=== PATIENT | male | born 1950 | race Caucasian/White ===

== ENCOUNTER → 2016-05-29 | Outpatient (CLI) | payer MEDICARE ==
[~2016-05-29] VITALS: Ht 170.2 cm; Wt 82.1 kg
[~2016-05-29] MED LIST: AMLO5TAB2 PO; ASPI81TA85 PO; AZEL0.055; AZEL0.1S3; FLUT1SPR2; FLUTISP; LIDOCAINE 2% INJ 100 MG/5 ML SDV (FOR ANES.) As Ordered ONE; MONT10TA2 PO; NS 1,000 ML IV SCH; PREV30CA11 PO; PROP60TA14 PO; PROPOFOL 200 MG/20 ML VIAL As Ordered ONE
--- NOTE | 2016-05-29 10:15 | ROOR ---
Patient Name: Kenney Robles Procedure Date: 05/29/2016 9:53 AM Date of : 1950 Age: 65 Room: [facility] Gender: Male Note Status: Finalized Procedure: Colonoscopy to Cecum Indications: High risk colon cancer surveillance: Personal history of colonic polyps, Last colonoscopy: 2007, Incidental - Heme positive stool Providers: Justus Nelson MD Referring MD: Helen Jain NP Requesting Provider: Medicines: Monitored Anesthesia Care Complications: No immediate complications. Procedure: Pre-Anesthesia Assessment: - The heart rate, respiratory rate, oxygen saturations, blood pressure, adequacy of pulmonary ventilation, and response to care were monitored throughout the procedure. The Colonoscope was introduced through the anus and advanced to the cecum, identified by appendiceal orifice and ileocecal valve. The colonoscopy was performed without difficulty. The patient tolerated the procedure well. The quality of the bowel preparation was excellent. Findings: The perianal and digital rectal examinations were normal. No other significant abnormalities were identified in a careful examination of the remainder of the colon. The exam was otherwise without abnormality. Impression: - The examination was otherwise normal. - No specimens collected. - The exam was otherwise normal to the cecum. Recommendation: - Patient has a contact number available for emergencies. The signs and symptoms of potential delayed complications were discussed with the patient. Return to normal activities tomorrow. Written discharge instructions were provided to the patient. - High fiber diet. - Discharge patient to home. - Continue present medications. - Repeat colonoscopy in 5 years for surveillance. - Return to referring physician. - The findings and recommendations were discussed with the patient's family. Justus Nelson MD Justus Nelson MD 05/29/2016 10:15:06 AM This report has been signed electronically. Number of Addenda: 0 Note Initiated On: 05/29/2016 9:53 AM Estimated Blood Loss: Estimated blood loss: none.
[2016-05-29 10:30] VITALS: BP 133/95
== END | disposition home or self-care (01) ==
LOC: M OPP 08:27
PROVIDERS: ATTEND Internal Medicine Gastroenterology
DX: Z12.11 Encounter for screening for malignant neoplasm of colon (principal); I10 Essential (primary) hypertension; E78.00 Pure hypercholesterolemia, unspecified; R06.83 Snoring; G47.30 Sleep apnea, unspecified; Z86.73 Personal history of transient ischemic attack (TIA), and cerebral infarction without residual deficits; Z97.4 Presence of external hearing-aid; Z79.82 Long term (current) use of aspirin; Z79.899 Other long term (current) drug therapy; Z79.51 Long term (current) use of inhaled steroids; Z87.891 Personal history of nicotine dependence
CPT/HCPCS: 99156; 99157; G0105

== ENCOUNTER 2022-08-19 09:31 | Day surgery (SDC) | payer MEDICARE ==
[~2022-08-19] VITALS: Ht 167.6 cm; Wt 81.2 kg
[~2022-08-19 09:31] MED LIST changes: +AMLO1TAB24 PO; -AMLO5TAB2 PO; +ASPI81TA26 PO; -ASPI81TA85 PO; +ASPI81TA86 PO; +CYCLOPENTOLATE 1% OPHTH SOLN 2ML BTL OD SCH; +FAMO20TA5 PO; +FLURBIPROFEN 0.03% OPHTH SOLN 2.5 ML OD SCH; +FLUT50SP17; -FLUTISP; +LIDOCAINE 1% SDV 5ML VIAL As Ordered ONE; -LIDOCAINE 2% INJ 100 MG/5 ML SDV (FOR ANES.) As Ordered ONE; +LR 1,000 ML IV SCH; +MIDAZOLAM INJ 2MG/2ML VIAL As Ordered ONE; -MONT10TA2 PO; +MONT10TA97 PO; +MYRB50TA PO; -NS 1,000 ML IV SCH; +PHENYLEPHRINE 2.5% OPHTH SOL 2ML OD SCH; +PREV1CAP PO; -PREV30CA11 PO; -PROPOFOL 200 MG/20 ML VIAL As Ordered ONE; +TETRACAINE 0.5% OPHTH SOLN 4ML OD SCH; +fentaNYL 100 MCG/2 ML INJECTION As Ordered ONE
[2022-08-19 13:45] VITALS: BP 150/79
== END 2022-08-19 13:50 | disposition home or self-care (01) ==
LOC: M SDC 09:31
PROVIDERS: ATTEND Ophthalmology
DX: H25.11 Age-related nuclear cataract, right eye (principal); I10 Essential (primary) hypertension; E78.5 Hyperlipidemia, unspecified; K21.9 Gastro-esophageal reflux disease without esophagitis; G43.909 Migraine, unspecified, not intractable, without status migrainosus; G47.33 Obstructive sleep apnea (adult) (pediatric); Z86.73 Personal history of transient ischemic attack (TIA), and cerebral infarction without residual deficits; Z79.899 Other long term (current) drug therapy; Z79.82 Long term (current) use of aspirin; Z85.46 Personal history of malignant neoplasm of prostate
CPT/HCPCS: 66984; J2250; J3010; V2632

== ENCOUNTER 2023-08-06 10:51 | Day surgery (SDC) | payer MEDICARE ==
[~2023-08-06] VITALS: Ht 172.7 cm; Wt 83.5 kg
[~2023-08-06 10:51] MED LIST changes: -CYCLOPENTOLATE 1% OPHTH SOLN 2ML BTL OD SCH; -FLURBIPROFEN 0.03% OPHTH SOLN 2.5 ML OD SCH; -FLUT50SP17; +FLUTISP; -LIDOCAINE 1% SDV 5ML VIAL As Ordered ONE; -LR 1,000 ML IV SCH; -MIDAZOLAM INJ 2MG/2ML VIAL As Ordered ONE; -PHENYLEPHRINE 2.5% OPHTH SOL 2ML OD SCH; -TETRACAINE 0.5% OPHTH SOLN 4ML OD SCH; -fentaNYL 100 MCG/2 ML INJECTION As Ordered ONE
[2023-08-06] MEDS ORDERED: propofoL 200 MG/20 ML VIAL As Ordered ONE (11:19)
[2023-08-06] MEDS: NS 1,000 ML IV ONE (11:20)
[2023-08-06 12:37] VITALS: TEMP 97.6
[2023-08-06 12:55] VITALS: BP 145/73; O2SAT 95
== END 2023-08-06 13:08 | disposition home or self-care (01) ==
LOC: M OPP 10:51
PROVIDERS: ATTEND Internal Medicine Gastroenterology
DX: Z86.010 Personal history of colon polyps (principal); D12.6 Benign neoplasm of colon, unspecified; K64.0 First degree hemorrhoids; K57.30 Diverticulosis of large intestine without perforation or abscess without bleeding; G47.30 Sleep apnea, unspecified; Z99.89 Dependence on other enabling machines and devices; Z87.891 Personal history of nicotine dependence; Z79.02 Long term (current) use of antithrombotics/antiplatelets; Z79.1 Long term (current) use of non-steroidal anti-inflammatories (NSAID); Z79.51 Long term (current) use of inhaled steroids; Z79.82 Long term (current) use of aspirin; Z79.899 Other long term (current) drug therapy